=== PATIENT | female | born 1990 | race Caucasian/White ===

== ENCOUNTER 2016-12-08 03:47 | Emergency (ER) | payer OTHER ==
[~2016-12-08] VITALS: Ht 162.6 cm; Wt 65.8 kg
[~2016-12-08 03:47] MED LIST: AMBIEN10 M1 PO; AMBIEN10 MG PO; BUSPAR7.5 MG PO; BUSPIRONE HCL7.5 MG PO; BUTALB-APAP-CA1 EACH PO; COLACE100 MG PO; CYCLOBENZAPRINE10 MG PO; CYMBALTA PO; FLEXERIL10 MG PO; HYDROCODON-ACE1 EACH PO; LYRICA50 MG PO; METAXALONE800 MG PO; MOTRIN600 MG PO; NEURONTIN300 MG PO; NORCO 7.5/321 TABLET PO; PAROXETINE HCL10 MG PO; PAXIL20 MG PO; PREDNISONE1 MG PO; REGLAN10 MG PO; ROZEREM8 MG PO; Skelaxin PO; Tylenol Regular Stre PO; ULTRAM50 MG PO; ZOFRAN4 MG PO; ZOFRAN8 MG PO; ZOLPIDEM TART12.5 MG PO
[2016-12-08] MEDS ORDERED: KEFLEX500 MG PO (05:09)
[2016-12-08 05:59] VITALS: BP 108/65
[2016-12-08] MEDS ORDERED: ZOFRAN4 MG PO (22:53)
== END 2016-12-08 06:00 | disposition home or self-care (01) ==
LOC: EME 03:47
PROC: 3E0234Z Introduction of Serum, Toxoid and Vaccine into Muscle, Percutaneous Approach (ICD-10-PCS; principal; 2016-12-08)
DX: S50.812A Abrasion of left forearm, initial encounter (principal); W26.8XXA Contact with other sharp object(s), not elsewhere classified, initial encounter; Y92.69 Other specified industrial and construction area as the place of occurrence of the external cause; Y99.0 Civilian activity done for income or pay; Z23 Encounter for immunization
CPT/HCPCS: 99281; 99284

== ENCOUNTER 2016-12-08 20:30 | Emergency (ER) | payer OTHER ==
[~2016-12-08] VITALS: Ht 162.6 cm; Wt 63.5 kg
[~2016-12-08 20:30] MED LIST changes: +KEFLEX500 MG PO
[2016-12-08 21:08] LABS: HEMATOCRIT 42.2 % (36.0-46.0); MCHC 34.6 G/DL (30.0-36.0); MCV 83.7 FL (83-99); NRBC (%) 0.1 /100 WBC (0-0); PLATELET COUNT 305 K/uL (156-360); RBC DIS.WIDTH-CV 12.4 % (11.8-14.6); RBC DIS.WIDTH-SD 37.5 % (39-53); RED BLOOD COUNT 5.04 M/uL (3.80-5.20); WHITE BLOOD COUNT 14.2 K/uL (4.1-10.2)
[2016-12-08 21:20] LABS: CHLORIDE 111 mEq/L (99-109); POTASSIUM 4.1 mEq/L (3.7-5.4); SODIUM 143 mEq/L (136-147)
[2016-12-08 21:21] LABS: GLUCOSE 126 mg/dL (70-99)
[2016-12-08 21:23] LABS: ANION GAP 13 MEQ/L (2-14)
[2016-12-08 21:25] LABS: GFR ESTIMATE (CALCULATED) > 59 mL/min/
[2016-12-08 21:26] LABS: UREA NITROGEN (BUN) 10 mg/dL (9-23)
[2016-12-08 21:33] LABS: QUANTITATIVE HCG < 4.0 MIU/ML
[2016-12-08 21:41] LABS: ADD MIUA? YES; BILIRUBIN NEGATIVE; BLOOD SMALL; COLOR YELLOW ((YELLOW)); GLUCOSE (STRIP) NEGATIVE; KETONES 80; LEUKOCYTES TRACE; NITRITE NEGATIVE; PROTEIN (STRIP) 30; SPECIFIC GRAVITY 1.025 (1.000-1.030); UROBILINOGEN 0.2 MG/DL (0.2-1.0)
[2016-12-08 22:01] LABS: EPITHELIAL CELLS 2+ /HPF; MUCUS 3+ /LPF; WHITE BLOOD CELLS 0-5 /HPF (0-5)
[2016-12-08 22:02] LABS: BACTERIA 2+ /HPF; CASTS NONE SEEN /LPF; CRYSTALS NONE SEEN; UCUL ADDED? YES
[2016-12-08] MEDS ORDERED: ZOFRAN4 MG PO (22:53)
[2016-12-08 23:18] VITALS: BP 110/73
== END 2016-12-08 23:21 | disposition home or self-care (01) ==
LOC: EME 20:30
DX: R11.2 Nausea with vomiting, unspecified (principal); N39.0 Urinary tract infection, site not specified; R20.0 Anesthesia of skin; R20.2 Paresthesia of skin; Z90.49 Acquired absence of other specified parts of digestive tract; S50.812D Abrasion of left forearm, subsequent encounter; W45.8XXD Other foreign body or object entering through skin, subsequent encounter
CPT/HCPCS: 80048; 81003; 84702; 85027; 87086; 99281; 99285; J1885; J2405; J7030

== ENCOUNTER 2017-10-31 20:41 | Emergency (ER) | payer OTHER ==
[~2017-10-31] VITALS: Ht 162.6 cm; Wt 67.6 kg
[2017-10-31] MEDS ORDERED: PEN-VEE K,VEET500 MG PO (21:12)
[2017-10-31] MEDS ORDERED: PERCOCET 5/31 TABLET PO (22:14)
[2017-10-31] MEDS ORDERED: AUGMENTIN875 MG PO (22:14)
[2017-10-31 22:37] VITALS: BP 122/84
== END 2017-10-31 22:37 | disposition home or self-care (01) ==
LOC: EME 20:41 → RME 20:41
DX: S61.213A Laceration without foreign body of left middle finger without damage to nail, initial encounter (principal); S61.412A Laceration without foreign body of left hand, initial encounter; S61.432A Puncture wound without foreign body of left hand, initial encounter; W54.0XXA Bitten by dog, initial encounter; Y92.008 Other place in unspecified non-institutional (private) residence as the place of occurrence of the external cause; Z23 Encounter for immunization; Z90.49 Acquired absence of other specified parts of digestive tract; Z91.040 Latex allergy status
CPT/HCPCS: 73130; 99281; 99284; S0020